=== PATIENT | female | born 1985 | race Caucasian/White ===

== ENCOUNTER 2020-01-01 15:09 | Observation (INO) | payer MEDICAID ==
[2020-01-01] MEDS ORDERED: PNV1TABL50 PO (17:02)
== END 2020-01-01 17:10 | disposition home or self-care (01) ==
LOC: 8 EST LDRP 15:09
PROVIDERS: ADMIT Obstetrics & Gynecology; ATTEND Obstetrics & Gynecology
DX: O36.0130 Maternal care for anti-D [Rh] antibodies, third trimester, not applicable or unspecified (principal); Z3A.38 38 weeks gestation of pregnancy
CPT/HCPCS: 36415; 59025; 86850; 86900; 86901; 90384; 96372; G0378